=== PATIENT | female | born 1945 | race Caucasian/White ===

== ENCOUNTER → 2017-06-21 | Outpatient (CLI) | payer OTHER ==
[~2017-06-21] MED LIST: BISOPROLOL-HCT1 EACH PO; CEFTIN500 MG PO; COUMADIN5 MG PO; FOSAMAX70 MG PO; HYDROCODON-ACE1 EAC7 PO; K-DUR10 MEQ PO; LANSOPRAZOLE30 MG PO; LIPITOR20 MG PO; METFORMIN HCL500 MG PO; PREVACID30 MG PO; PROAIR HFA8.5 GM IH; SYNTHROID50 MCG PO; ZYRTEC10 M3 PO
== END | disposition home or self-care (01) ==
LOC: RAD 12:07
DX: M43.8X7 Other specified deforming dorsopathies, lumbosacral region (principal); M43.16 Spondylolisthesis, lumbar region; M47.895 Other spondylosis, thoracolumbar region; M51.37 Other intervertebral disc degeneration, lumbosacral region; M25.78 Osteophyte, vertebrae; M46.97 Unspecified inflammatory spondylopathy, lumbosacral region; Z96.89 Presence of other specified functional implants; R93.7 Abnormal findings on diagnostic imaging of other parts of musculoskeletal system; M54.5 Low back pain
CPT/HCPCS: 72080